=== PATIENT | female | born 1965 | race Caucasian/White ===

== ENCOUNTER 2021-02-20 06:03 | Day surgery (SDC) | payer OTHER ==
[~2021-02-20] VITALS: Ht 165.1 cm; Wt 128.4 kg
--- NOTE | ~2021-02-20 | O ---
[facility] [place] [address] OPERATIVE REPORT Name: LEE DISLA Room #: 150-1 [facility] M.R.#: [id number] Admission: 02/20/21 Attend Phys: Cliff Michel Discharge: Date of : 61 Report #: [id number] THIS REPORT FOR: cc: Temo Goodman James DO VanDenBerghe,Cliff Burger MD ~ DOC #: [id number] Cliff Waldrop MD DATE OF SERVICE: 02/20/2021 PREOPERATIVE DIAGNOSES: Left shoulder pain, rotator cuff tear, biceps tendinopathy, impingement syndrome. POSTOPERATIVE DIAGNOSES: Left shoulder rotator cuff tear involving medium sized, involving upper border of subscapularis and supraspinatus, high-grade partial thickness tear of the long head of the biceps tendon, complex labral tear, intra-articular synovitis, subacromial bursitis. PROCEDURES PERFORMED: Left shoulder arthroscopy, rotator cuff repair, arthroscopic biceps tenodesis, extensive debridement. SURGEON: Cliff Waldrop MD ACCOUNTING POLICY CONSULTANT: Galilea Elaine PA-C. ANESTHESIA: General. FLUIDS: Please see anesthesia records. ESTIMATED BLOOD LOSS: 5 mL. DESCRIPTION OF PROCEDURE: After proper identification of the patient and the operative site in preoperative holding area, the operative site signed by myself. Prophylactic antibiotics given. The patient elected to receive an interscalene block after reviewing the risks, benefits, alternatives, and potential complications with Dr. Dye. After satisfactory ultrasound-guided interscalene block, the patient was brought back to the operative suite. After induction of satisfactory general anesthesia, the patient was carefully positioned in the right lateral decubitus position. Fajardo bag and axillary roll were utilized to support the torso. The left shoulder was stable throughout a full arc of motion and sterilely prepped and draped in the usual manner, placed in 10 pounds of balanced arthroscopic suspension. Posterior portal was established, joint was inflated with an arthroscopic pump set at 40 mmHg. An anterior superior portal was created using a spinal needle for localization. Examination of the glenohumeral joint revealed a complex high-grade near complete partial thickness tear of the long head biceps tendon. A portion of [address] [address] OPERATIVE REPORT Name: LEE DISLA ANNE Room #: 150-1 [facility] M.R.#: [id number] Admission: 02/20/21 Attend Phys: Cliff Michel Discharge: Date of : 61 Report #: [id number] this was freely mobile within the joint and a portion of this was still intact, but mobile over the bicipital groove and causing an upper border tear of the subscapularis. Frayed portion of the tendon was debrided. Tendon grasping stitch was applied. This was then released off the superior labrum. Labral fraying and tearing was more noted in the posterior inferior quadrant. Mild degenerative changes were noted in the glenoid in this region. There is evidence of a full-thickness anterior supraspinatus rotator cuff tear. An additional anterior inferior portal was created. Frayed portion of the subscapularis was debrided. The lesser tuberosity was prepared with a sharp ring curette and motorized shaver. A FiberTape was passed in a simple manner through the upper rolled border, secured through a pretapped hole with a 4.75 mm SwiveLock anchor, which nicely restored the upper border of the subscap as shown in image 6. Hypertrophic synovium was also debrided along with the labrum. The arthroscope was introduced in the subacromial space where very thickened subacromial bursa was encountered. It was resected for visualization purposes. Frayed portion of the rotator cuff was debrided. Tear measured approximately 15 mm, was minimally retracted. Tendon tissue was very thin, still amenable to repair. This was not significantly retracted more than a few millimeters and a sharp ring curette was used to debride the greater tuberosity along with a motorized shaver, a double-loaded Arthrex 4.75 mm SwiveLock anchor was inserted through a separate portal off the lateral border of the acromion. It had good purchase. Sutures were passed in a horizontal mattress fashion, tied with locking sliding knots, backed up with alternating half hitches and then a double row fixation was utilized with an additional SwiveLock anchor. Next, lateral portion of the bicipital groove was opened. Tendon was delivered out the anterolateral portal and was debrided. Whipstitch was applied. It was secured to the bicipital groove using an Arthrex proximal biceps tenodesis button. Tendon laid down nicely within the bicipital groove was tensioned as the sutures were tied and it was stable to probing. Subacromial space thoroughly irrigated with normal saline. No significant bony prominence of the anterolateral acromion was noted. Portals were closed. Sterile dressing was applied as well as a PolarCare unit. She will be immobilized in a sling and abduction pillow with no external rotation beyond neutral for the first 4 weeks. Qualified assistant public defender utilized throughout the entire procedure to aid in patient limb positioning, visualization with the arthroscope instrument, suture passage as well as closure and sling and dressing application. Cliff Waldrop MD GRV/KDA [address] [address] OPERATIVE REPORT Name: LEE DISLA Room #: 150-[address] [facility] NAZARIO RebeccaRRashmi#: [id number] Admission: 02/20/21 Attend Phys: Cliff Michel Discharge: Date of : 61 Report #: [id number] By: [id number] Cliff Waldrop MD /power
[~2021-02-20 06:03] MED LIST: ASA81BEC PO; BIOTIN2500 MCG PO; CALCIUM500 MG PO; DULOXETINE HCL30 MG PO; FISH OIL 1,001000 M3 PO; IRON325 M1 PO; LEVOTHYROXINE25 MC1 PO; LYSINE500 MG PO; MELOXICAM15 MG PO; OMEPRAZOLE40 MG PO; TURMERIC500 M2 PO; TYLENOL325 MG PO; VITAMIN B-121000 MC2 SUBLING; VITAMIN C500 M1 PO; VITAMIN D350 MC3 PO; ZANAFLEX4 M2 PO; ZOCOR 20 MG TAB20 M1 PO; ZYRTEC10 M5 PO; [UNRECOGNIZED DRUG - OTHER] PO
[2021-02-20 06:49] VITALS: BP 156/84
[2021-02-20 10:23] VITALS: BP 156/84
--- NOTE | 2021-02-20 13:18 | EKG ---
[address] [address] ELECTROCARDIOGRAM REPORT Name: FISHTacoLEE ANN Room #: 150-1 [facility] M.R.#: [id number] Admission: 02/20/21 Attend Phys: Cliff Michel Discharge: Date of : 61 Report #: [id number] [facility] Test Date: 2021-02-20 Test Time: 09:58:13 Pat Name: LEE DISLA Department: Room: 150 1 Gender: F Front Line Leader: SHAUN : 1965 Requested By: Minh Curtis Order Number: [id number] MD: Abel Izaguirre Measurements Intervals [place] Rate: 73 P: 40 [place]: 135 QRS: -39 QRSD: 120 T: -16 QT: 426 QTc: 470 Interpretive Statements NSR No previous ECG available for comparison Electronically Signed On 02-20-2021 13:18:03 CDT by Abel Izaguirre [email or web address] <ELECTRONICALLY SIGNED> By: Abel Izaguirre MD, [facility] 02/20/21 1318 [id number] Abel Izaguirre MD, FACC /EPI
== END 2021-02-20 11:25 | disposition home or self-care (01) ==
LOC: OR 06:03 → TBA 06:03 → OR 09:46
PROVIDERS: ATTEND Orthopaedic Surgery Sports Medicine
DX: M25.512 Pain in left shoulder (principal); M75.102 Unspecified rotator cuff tear or rupture of left shoulder, not specified as traumatic; M75.22 Bicipital tendinitis, left shoulder; M25.812 Other specified joint disorders, left shoulder; S43.492A Other sprain of left shoulder joint, initial encounter; S46.112A Strain of muscle, fascia and tendon of long head of biceps, left arm, initial encounter; M75.52 Bursitis of left shoulder; M65.812 Other synovitis and tenosynovitis, left shoulder; E78.5 Hyperlipidemia, unspecified; F32.9 Major depressive disorder, single episode, unspecified; D64.9 Anemia, unspecified; Z98.890 Other specified postprocedural states; Z79.899 Other long term (current) drug therapy; Z96.652 Presence of left artificial knee joint; Z90.49 Acquired absence of other specified parts of digestive tract; Z88.0 Allergy status to penicillin; Z88.8 Allergy status to other drugs, medicaments and biological substances; X58.XXXA Exposure to other specified factors, initial encounter; Y93.89 Activity, other specified; Y92.89 Other specified places as the place of occurrence of the external cause; Y99.8 Other external cause status
CPT/HCPCS: 50010; 50101; 50172; 50386; 50417; 50935; 51320; 51847; 52001; 52313; 53610; 56527; 56530; 57103; 57418; 57419; 57420; 58575; 58576; 58577; 58589; 62110; 62900; 70005